=== PATIENT | male | born 1955 | race Caucasian/White ===

== ENCOUNTER 2023-04-01 18:42 | Inpatient (IN) | payer MEDICARE ==
[~2023-04-01] VITALS: Ht 180.3 cm; Wt 95.9 kg
[2023-04-01] MEDS ORDERED: diltiazem 5mg/ml 5ml inj. IV ONE ×2 (18:50→19:35)
[2023-04-01 19:03] LABS: BASOPHILS # (AUTO) 0.1 X10'3 (0-0.2); BASOPHILS % (AUTO) 0.4 % (0-1); EOSINOPHILS % (AUTO) 0 % (0-6); LYMPHOCYTES # (AUTO) 2.4 X10'3 (1.1-4.8); LYMPHOCYTES % (AUTO) 11.9 % (21-51); MEAN CORPUSCULAR HEMOGLOBIN 29.1 PG (27.0-31.0); MEAN CORPUSCULAR HGB CONC 32.6 g/dL (33.0-36.5); MEAN CORPUSCULAR VOLUME 89.3 FL (78-98); MEAN PLATELET VOLUME 7.9 FL (7.4-10.4); MONOCYTES # (AUTO) 1.9 X10'3 (0-0.9); MONOCYTES % (AUTO) 9.8 % (2-12); NEUTROPHILS # (AUTO) 15.5 X10'3 (1.8-7.7); NEUTROPHILS % (AUTO) 77.9 % (42-75); PLATELET COUNT 268 X10'3 (140-440); RED BLOOD COUNT 5.49 X10'6 (4.70-6.10); RED CELL DISTRIBUTION WIDTH 14.8 % (11.5-14.5); WHITE BLOOD COUNT 19.9 X10'3 (4.5-11.0)
[2023-04-01 19:15] LABS: ALANINE AMINOTRANSFERASE 64 U/L (12-78); ALBUMIN 3.7 G/DL (3.4-5.0); ALKALINE PHOSPHATASE 78 IU/L (46-116); ANION GAP 11 (8-16); ASPARTATE AMINO TRANSFERASE 86 U/L (10-37); BILIRUBIN,TOTAL 1.4 MG/DL (0.1-1.0); BLOOD UREA NITROGEN 23 MG/DL (7-18); BUN/CREATININE RATIO 22.1 (10.0-20.0); CALCIUM 9.2 MG/DL (8.5-10.1); CHLORIDE 100 MMOL/L (99-107); CREATININE 1.04 MG/DL (0.60-1.10); GLUCOSE 111 MG/DL (70-104); POTASSIUM 3.7 MMOL/L (3.5-5.1); SODIUM 140 MMOL/L (135-145); TOTAL CARBON DIOXIDE 28.7 MMOL/L (24-32); TOTAL PROTEIN 7.5 G/DL (6.4-8.2); eCRCL 74 ML/MIN; eGFR 71 ML/MIN
[2023-04-01 19:23] LABS: PRO BRAIN NATRIURETIC PEPTIDE 284 PG/ML (0-125)
[2023-04-01] MEDS ORDERED: diltiazem-NS 100mg/100ml 100 ML IV SCH (19:50)
[2023-04-01] MEDS ORDERED: HYDROmorphone 1 mg/ml syringe IV ONE (19:50)
[2023-04-01] MEDS ORDERED: ringers solution, lacted 1,000 ML IV ONE (19:55)
[2023-04-01] MEDS ORDERED: magnesium Cl slow-release 64mg tablet PO PRN ×2 (20:55)
[2023-04-01] MEDS ORDERED: magnesium 4gm in 100ml NS 100 ML IV PRN (20:55)
[2023-04-01] MEDS ORDERED: ondansetron/PF 4mg/2ml inj IV PRN (20:55)
[2023-04-01] MEDS ORDERED: potassium Cl 40MEQ/1/2NS 520ml 520 ML IV PRN (20:55)
[2023-04-01] MEDS ORDERED: PERFLUTREN PROTEIN-A MICROSPHR (Optison) 0.22 MG/ML 3ML VIAL IV PRN (20:55)
[2023-04-01] MEDS ORDERED: potassium Cl 20 mEq SR tablet PO PRN (20:55)
[2023-04-01] MEDS ORDERED: magnesium 2GM in 50ml NS 50 ML IV PRN (20:55)
--- NOTE | 2023-04-01 21:03 | NUR ---
RECIEVED VERBAL ORDER TO Leslee TRIPP FROM MD THOMAS
[2023-04-01] MEDS: normal saline 1000ml 1,000 ML IV SCH (21:13)
[2023-04-01] MEDS: CefTRIAXone/D5W-Rocephin 1gm 50 ML IV SCH ×2 (21:16→22:00)
[2023-04-01] MEDS: pantoprazole 40MG/NS 100ML BAG 100 ML IV SCH (21:19)
--- NOTE | 2023-04-01 21:42 | NUR ---
PATIENTS CALLED LEFT NAME /CONTACT # KANIKA
[2023-04-01] MEDS: morphine 2 MG/ML inj. syringe IV PRN (23:27)
[2023-04-01 23:45] VITALS: BP 120/68; PULSE 76; RESP 16; TEMP 99; O2SAT 92
[2023-04-01 23:50] VITALS: RESP 16; O2SAT 92
[2023-04-02] VITALS (16 sets, daily range): BP systolic 91–145; BP diastolic 58–85; PULSE 57–76; RESP 14–23; TEMP 98.2–98.6; O2SAT 91–97
[2023-04-02] MEDS ORDERED: diltiazem 5mg/ml 5ml inj. IV PRN (02:05)
--- NOTE | 2023-04-02 02:15 | NUR ---
WHILE I WAS AT LUNCH, TELE CALLED TO NOTIFY PT WENT TO AFUTTER RATE OF 150S TOTAL OF 3X 15MIN APART. DR BENTON CONTACTED AND ORDERED CARDIZEM 5MG Q2H X2 FOR HR>110. IF HR REMAINS HIGH AFTER CARDIZEM X2, TRANSFER PT TO PCU.
[2023-04-02] MEDS ORDERED: FLUT16SP BOTHNARES (02:54)
[2023-04-02] MEDS ORDERED: HYDR-3973 PO (02:54)
[2023-04-02] MEDS ORDERED: TADA5TAB2 PO (02:54)
[2023-04-02] MEDS ORDERED: SUMA25TA35 PO (02:54)
[2023-04-02] MEDS ORDERED: FLO0.4C PO (02:54)
[2023-04-02] MEDS ORDERED: FAMO40TA58 PO (02:54)
[2023-04-02] MEDS: morphine 2 MG/ML inj. syringe IV PRN (06:00)
[2023-04-02 06:11] LABS: HEMOGLOBIN 13.9 g/dl (14.0-17.9)
[2023-04-02 06:15] LABS: BASOPHILS # (AUTO) 0.1 X10'3 (0-0.2); BASOPHILS % (AUTO) 0.9 % (0-1); EOSINOPHILS # (AUTO) 0.1 X10'3 (0-0.9); EOSINOPHILS % (AUTO) 0.8 % (0-6); LYMPHOCYTES # (AUTO) 2.2 X10'3 (1.1-4.8); LYMPHOCYTES % (AUTO) 14.6 % (21-51); MEAN CORPUSCULAR HEMOGLOBIN 29.8 PG (27.0-31.0); MEAN CORPUSCULAR VOLUME 90.1 FL (78-98); MEAN PLATELET VOLUME 7.9 FL (7.4-10.4); MONOCYTES # (AUTO) 1.5 X10'3 (0-0.9); MONOCYTES % (AUTO) 9.9 % (2-12); NEUTROPHILS # (AUTO) 10.9 X10'3 (1.8-7.7); NEUTROPHILS % (AUTO) 73.8 % (42-75); PLATELET COUNT 232 X10'3 (140-440); RED BLOOD COUNT 4.66 X10'6 (4.70-6.10); RED CELL DISTRIBUTION WIDTH 14.7 % (11.5-14.5); WHITE BLOOD COUNT 14.8 X10'3 (4.5-11.0)
[2023-04-02 06:21] LABS: ALANINE AMINOTRANSFERASE 66 U/L (12-78); ALBUMIN 2.9 G/DL (3.4-5.0); ALKALINE PHOSPHATASE 69 IU/L (46-116); ANION GAP 6 (8-16); ASPARTATE AMINO TRANSFERASE 44 U/L (10-37); BILIRUBIN,TOTAL 0.7 MG/DL (0.1-1.0); BLOOD UREA NITROGEN 20 MG/DL (7-18); BUN/CREATININE RATIO 24.7 (10.0-20.0); CALCIUM 8.2 MG/DL (8.5-10.1); CHLORIDE 105 MMOL/L (99-107); CREATININE 0.81 MG/DL (0.60-1.10); GLUCOSE 95 MG/DL (70-104); MAGNESIUM 1.7 MG/DL (1.5-2.4); POTASSIUM 3.9 MMOL/L (3.5-5.1); SODIUM 136 MMOL/L (135-145); TOTAL CARBON DIOXIDE 25.1 MMOL/L (24-32); TOTAL PROTEIN 5.9 G/DL (6.4-8.2); eCRCL 96 ML/MIN; eGFR > 90 ML/MIN
--- NOTE | 2023-04-02 06:34 | NUR ---
Problems reprioritized. Patient report given, questions answered & plan of care reviewed with DINH HEMPHILL.
--- NOTE | 2023-04-02 07:08 | NUR ---
Patient in room ORTHO 4021. I have received report from Cynthia and had the opportunity to ask questions and assume patient care.
[2023-04-02] MEDS: K and/or MAG REPLACEMENT MC SCH ×2 (07:10→20:00)
[2023-04-02] MEDS: pantoprazole 40MG/NS 100ML BAG 100 ML IV SCH ×2 (07:57→20:43)
[2023-04-02] MEDS: metroNIDAZOLE-Flagyl 500mg/NS 100 ML IV SCH ×3 (07:58→16:00)
[2023-04-02] MEDS: normal saline 1000ml 1,000 ML IV SCH ×2 (07:58→20:42)
--- NOTE | 2023-04-02 08:35 | NUR ---
Message: Amado Holliday in [id number] is having severe heartburn. Can I get an order for Maalox? -Melissa [phone]
[2023-04-02] MEDS ORDERED: pneumococcal 23-VAL P-sac vacc 25 mcg/0.5ml vial IMVAC ONE (10:00)
--- NOTE | 2023-04-02 10:40 | NUR ---
PAGER ID: [phone] MESSAGE: Amado Holliday in [id number] is having a lot of pain and pain med isn't working. Pt has 1mg Morphine q4. Can we cange to Dilaudid? -Melissa [phone]
[2023-04-02] MEDS ORDERED: HYDROmorphone inj. 0.5 MG/0.5 ML DISP.SYRIN IV PRN (10:45)
[2023-04-02] MEDS: HYDROmorphone 1 mg/ml syringe IV PRN ×3 (10:57→23:59)
--- NOTE | 2023-04-02 14:20 | NUR ---
Pt to CT
[2023-04-02] MEDS ORDERED: LISI20TA28 PO (14:31)
[2023-04-02] MEDS ORDERED: morphine 4 MG/ML inj SYRINge IV PRN (16:55)
[2023-04-02] MEDS ORDERED: BUPIVAcaine/PF 2.5mg/ml (0.25%) 10ml vial ONE (16:55)
[2023-04-02] MEDS ORDERED: morphine 2 MG/ML inj. syringe IV PRN (16:55)
[2023-04-02] MEDS ORDERED: proCHLORperazine 10 MG/2 ml inj IV PRN (16:55)
[2023-04-02] MEDS ORDERED: ondansetron/PF 4mg/2ml inj IV PRN ×2 (16:55→19:10)
[2023-04-02] MEDS ORDERED: ringers solution, lacted 1,000 ML IV SCH (16:55)
[2023-04-02] MEDS ORDERED: meperidine/PF 25mg/ml syringe IV PRN ×2 (16:55)
[2023-04-02] MEDS ORDERED: sevoflurane 250ml liquid IH ONE (17:28)
[2023-04-02] MEDS ORDERED: metroNIDAZOLE 500mg/NS 100ml premix IV ONE (17:28)
[2023-04-02] MEDS ORDERED: midazolam 1 mg/ML 2ml injection ONE (17:40)
[2023-04-02] MEDS ORDERED: fentaNYL/PF 50MCG/1 ML 2ML syringe ONE (17:40)
[2023-04-02] MEDS ORDERED: ceFOXitin 1000 MG inj ONE ×2 (17:51)
[2023-04-02] MEDS ORDERED: BUPIVAcaine/PF 2.5 mg/ml (0.25%) 30ml vial IJ ONE (18:29)
--- NOTE | 2023-04-02 18:38 | NUR ---
Problems reprioritized. Patient report given, questions answered & plan of care reviewed with Keisha.
[2023-04-02] MEDS ORDERED: naloxone 0.4 mg/ml inj IV PRN (19:10)
[2023-04-02] MEDS ORDERED: propofol inj 20 ML IV ONE (19:13)
[2023-04-02] MEDS ORDERED: ondansetron/PF 4mg/2ml inj ONE (19:14)
[2023-04-02] MEDS ORDERED: neostigmine methylsulfate 1 MG/ML 10ml vial ONE (19:14)
[2023-04-02] MEDS ORDERED: dexamethasone sod phosphate 4mg/ml inj. ONE (19:14)
[2023-04-02] MEDS ORDERED: rocuronium 10mg/ml inj IV ONE ×2 (19:14)
[2023-04-02] MEDS ORDERED: glycopyrrolate 0.2mg/ml inj ONE (19:14)
--- NOTE | 2023-04-02 19:19 | NUR ---
Received from OR via HOSPITAL BED, accompanied by Anesthesiologist and report given by NIKOLAS Anesthesiologist. PATIENT A&OX4, SEVERE ABDOMEN PAIN-WILL MEDICATE, V/S WNL, SCD ON , PIV 20G LEFT AC, PIV 18G RIGHT AC, BANDAID LAPS SITES CLOSED C/D/I TO ABDOMEN WITH HOLLY DRAINING 25 CC OF SEROSANGUINEOUS. Addendum: 04/02/23 at 1938 by Edwin Morton RN Amended: Links added.
[2023-04-02] MEDS: meperidine/PF 25mg/ml syringe IV PRN ×3 (19:22→20:04)
--- NOTE | 2023-04-02 19:39 | NUR ---
Received report from debt recovery officer Tonny. Patient to follow.
--- NOTE | 2023-04-02 20:14 | NUR ---
PATIENT HAS MET ALL CRITERIA FOR TRANSFER TO ORTHO FLOOR. VSS. DRESSINGS INTACT. BED LOW, CALL LIGHT PRESENT AND 2 RAILS UP. RN PRESENT TO ACCEPT CARE OF PATIENT AND REPORT HAS BEEN CALLED. ALL QUESTIONS ANSWERED TO ACCEPTING RN. Addendum: 04/02/23 at 2019 by Edwin Morton RN Amended: Links added.
--- NOTE | 2023-04-02 20:15 | NUR ---
Patient arrived back to floor via bed from surgery. Oriented but sleepy. Post of VS initiated.
[2023-04-02] MEDS: tamsulosin 0.4mg capsule PO SCH (20:53)
[2023-04-02] MEDS: enoxaparin 40mg/0.4ml syringe SUBCUT SCH (20:54)
[2023-04-02] MEDS: CefTRIAXone/D5W-Rocephin 1gm 50 ML IV SCH (23:45)
[2023-04-03] MEDS: metroNIDAZOLE-Flagyl 500mg/NS 100 ML IV SCH ×3 (00:50→16:15)
[2023-04-03 02:00] VITALS: BP 130/77; PULSE 68; RESP 16; TEMP 97.2; O2SAT 94
[2023-04-03] MEDS: normal saline 1000ml 1,000 ML IV SCH ×2 (02:55→18:03)
[2023-04-03 06:00] VITALS: BP 121/63; PULSE 64; RESP 14; TEMP 97.6; O2SAT 93
[2023-04-03 06:08] LABS: BASOPHILS % (AUTO) 0.1 % (0-1); EOSINOPHILS % (AUTO) 0 % (0-6); HEMATOCRIT 42.7 % (42.0-52.0); HEMOGLOBIN 13.9 g/dl (14.0-17.9); LYMPHOCYTES # (AUTO) 0.9 X10'3 (1.1-4.8); LYMPHOCYTES % (AUTO) 6.9 % (21-51); MEAN CORPUSCULAR HEMOGLOBIN 29.1 PG (27.0-31.0); MEAN CORPUSCULAR HGB CONC 32.7 g/dL (33.0-36.5); MEAN CORPUSCULAR VOLUME 89.2 FL (78-98); MEAN PLATELET VOLUME 8.1 FL (7.4-10.4); MONOCYTES # (AUTO) 0.7 X10'3 (0-0.9); MONOCYTES % (AUTO) 5.2 % (2-12); NEUTROPHILS # (AUTO) 11.3 X10'3 (1.8-7.7); NEUTROPHILS % (AUTO) 87.8 % (42-75); PLATELET COUNT 218 X10'3 (140-440); RED BLOOD COUNT 4.78 X10'6 (4.70-6.10); RED CELL DISTRIBUTION WIDTH 14.4 % (11.5-14.5); WHITE BLOOD COUNT 12.8 X10'3 (4.5-11.0)
[2023-04-03 06:13] LABS: ALANINE AMINOTRANSFERASE 77 U/L (12-78); ALBUMIN 2.9 G/DL (3.4-5.0); ALBUMIN/GLOBULIN RATIO 0.9 (1.1-1.5); ALKALINE PHOSPHATASE 62 IU/L (46-116); ANION GAP 6 (8-16); ASPARTATE AMINO TRANSFERASE 54 U/L (10-37); BILIRUBIN,TOTAL 0.4 MG/DL (0.1-1.0); BLOOD UREA NITROGEN 14 MG/DL (7-18); BUN/CREATININE RATIO 19.4 (10.0-20.0); CALCIUM 8.1 MG/DL (8.5-10.1); CHLORIDE 105 MMOL/L (99-107); CREATININE 0.72 MG/DL (0.60-1.10); GLUCOSE 130 MG/DL (70-104); MAGNESIUM 1.9 MG/DL (1.5-2.4); POTASSIUM 4.1 MMOL/L (3.5-5.1); SODIUM 136 MMOL/L (135-145); TOTAL CARBON DIOXIDE 24.7 MMOL/L (24-32); TOTAL PROTEIN 6.3 G/DL (6.4-8.2); eCRCL 107 ML/MIN; eGFR > 90 ML/MIN
--- NOTE | 2023-04-03 07:00 | NUR ---
Problems reprioritized. Patient report given, questions answered & plan of care reviewed with Melissa TAO.
--- NOTE | 2023-04-03 07:04 | NUR ---
Patient in room [facility]TH[facility] 4021. I have received report from Keisha and had the opportunity to ask questions and assume patient care.
[2023-04-03] MEDS: K and/or MAG REPLACEMENT MC SCH ×2 (07:31→20:00)
[2023-04-03] MEDS: nicotine 21mg patch - 24 hr TD SCH (08:00)
[2023-04-03] MEDS: lisinopril 20mg tablet PO SCH (08:07)
[2023-04-03] MEDS: famotidine 20mg tablet PO SCH (08:07)
[2023-04-03] MEDS: pantoprazole 40MG/NS 100ML BAG 100 ML IV SCH ×2 (08:09→20:17)
[2023-04-03] MEDS: tamsulosin 0.4mg capsule PO SCH ×2 (09:22→20:12)
[2023-04-03] MEDS: HYDROmorphone 1 mg/ml syringe IV PRN ×4 (09:22→22:02)
[2023-04-03 10:00] VITALS: BP 141/71; PULSE 56; RESP 18; TEMP 98.3; O2SAT 91
--- NOTE | 2023-04-03 12:39 | NUR ---
0800 dose of Flagyl missed due to being out of stock in both [facility] on the floor. Pharmacy messaged and called multiple times, however, once antibiotic arrived it was too late to hang until next dose is due.
[2023-04-03] MEDS: metoclopramide 5 mg/ml inj IV SCH ×2 (14:05→20:16)
[2023-04-03 18:00] VITALS: BP 115/58; PULSE 69; RESP 16; TEMP 97.9; O2SAT 92
--- NOTE | 2023-04-03 18:58 | NUR ---
Problems reprioritized. Patient report given, questions answered & plan of care reviewed with Sujatha.
--- NOTE | 2023-04-03 19:07 | NUR ---
Patient in room [facility]TH[facility] 4021. I have received report from Mary TAO and had the opportunity to ask questions and assume patient care.
[2023-04-03 20:00] VITALS: RESP 16; O2SAT 92
--- NOTE | 2023-04-03 20:00 | NUR ---
Patient states that he has pain but doesn't want to take PO pain pills. Patient states that he wants to have IV pain meds when available. Addendum: 04/03/23 at 2148 by Sujatha Funes LVN, LVN Amended: Links added.
[2023-04-03] MEDS: enoxaparin 40mg/0.4ml syringe SUBCUT SCH (20:12)
[2023-04-03 22:00] VITALS: BP 129/80; PULSE 69; RESP 20; TEMP 98.6; O2SAT 93
[2023-04-03] MEDS: CefTRIAXone/D5W-Rocephin 1gm 50 ML IV SCH (22:02)
[2023-04-04] VITALS (7 sets, daily range): BP systolic 128–148; BP diastolic 66–85; PULSE 60–71; RESP 14–16; TEMP 97.8–98.2; O2SAT 92–97
[2023-04-04] MEDS: metroNIDAZOLE-Flagyl 500mg/NS 100 ML IV SCH ×3 (00:26→15:52)
[2023-04-04] MEDS: normal saline 1000ml 1,000 ML IV SCH ×3 (00:32→20:50)
[2023-04-04] MEDS: metoclopramide 5 mg/ml inj IV SCH ×4 (02:18→20:31)
--- NOTE | 2023-04-04 03:02 | NUR ---
during my shift. Patient denies having any flatus or BM. Educated patient on getting up out of bed and walking. This will help his bowels to start working. patient did walk the unit several times for my shift.
--- NOTE | 2023-04-04 03:30 | NUR ---
I agree with HOSPITALIST NOCTURNIST PHYSICIAN physical assessment
[2023-04-04] MEDS: HYDROmorphone 1 mg/ml syringe IV PRN (03:42)
--- NOTE | 2023-04-04 03:53 | NUR ---
Problems reprioritized. Patient report given, questions answered & plan of care reviewed with Christi TAO.
--- NOTE | 2023-04-04 03:57 | NUR ---
Patient in room [facility]TH[facility] 4021. I have received report from Sujatha and had the opportunity to ask questions and assume patient care.
[2023-04-04] MEDS: K and/or MAG REPLACEMENT MC SCH ×2 (07:23→20:00)
[2023-04-04] MEDS: nicotine 21mg patch - 24 hr TD SCH (07:24)
[2023-04-04] MEDS: pantoprazole 40MG/NS 100ML BAG 100 ML IV SCH ×2 (07:28→20:30)
[2023-04-04] MEDS: famotidine 20mg tablet PO SCH (07:35)
[2023-04-04] MEDS: tamsulosin 0.4mg capsule PO SCH ×2 (07:35→20:32)
[2023-04-04] MEDS: lisinopril 20mg tablet PO SCH (07:37)
[2023-04-04] MEDS: HYDROcodone/acetaminophen 10/325mg tab PO PRN ×4 (07:57→20:32)
[2023-04-04 08:45] LABS: BASOPHILS % (AUTO) 0.4 % (0-1); EOSINOPHILS # (AUTO) 0.1 X10'3 (0-0.9); EOSINOPHILS % (AUTO) 0.6 % (0-6); HEMATOCRIT 40.7 % (42.0-52.0); HEMOGLOBIN 13.6 g/dl (14.0-17.9); LYMPHOCYTES # (AUTO) 2.1 X10'3 (1.1-4.8); LYMPHOCYTES % (AUTO) 21.8 % (21-51); MEAN CORPUSCULAR HEMOGLOBIN 29.8 PG (27.0-31.0); MEAN CORPUSCULAR HGB CONC 33.4 g/dL (33.0-36.5); MEAN CORPUSCULAR VOLUME 89.2 FL (78-98); MEAN PLATELET VOLUME 7.6 FL (7.4-10.4); MONOCYTES % (AUTO) 10.2 % (2-12); NEUTROPHILS # (AUTO) 6.6 X10'3 (1.8-7.7); PLATELET COUNT 239 X10'3 (140-440); RED BLOOD COUNT 4.56 X10'6 (4.70-6.10); RED CELL DISTRIBUTION WIDTH 14.3 % (11.5-14.5); WHITE BLOOD COUNT 9.8 X10'3 (4.5-11.0)
[2023-04-04 09:07] LABS: ALANINE AMINOTRANSFERASE 53 U/L (12-78); ALBUMIN 2.9 G/DL (3.4-5.0); ALKALINE PHOSPHATASE 56 IU/L (46-116); ANION GAP 6 (8-16); ASPARTATE AMINO TRANSFERASE 24 U/L (10-37); BILIRUBIN,TOTAL 0.5 MG/DL (0.1-1.0); BLOOD UREA NITROGEN 11 MG/DL (7-18); BUN/CREATININE RATIO 12.6 (10.0-20.0); CALCIUM 8.1 MG/DL (8.5-10.1); CHLORIDE 104 MMOL/L (99-107); CREATININE 0.87 MG/DL (0.60-1.10); GLUCOSE 101 MG/DL (70-104); MAGNESIUM 1.9 MG/DL (1.5-2.4); POTASSIUM 3.4 MMOL/L (3.5-5.1); SODIUM 137 MMOL/L (135-145); TOTAL PROTEIN 5.9 G/DL (6.4-8.2); eCRCL 89 ML/MIN; eGFR 88 ML/MIN
[2023-04-04] MEDS: potassium Cl 20 mEq SR tablet PO PRN ×3 (11:38→20:34)
--- NOTE | 2023-04-04 18:23 | NUR ---
Problems reprioritized. Patient report given, questions answered & plan of care reviewed with Kristie.
[2023-04-04] MEDS: enoxaparin 40mg/0.4ml syringe SUBCUT SCH (20:31)
[2023-04-05] MEDS: metoclopramide 5 mg/ml inj IV SCH ×2 (01:57→08:06)
[2023-04-05 04:37] LABS: BASOPHILS # (AUTO) 0.1 X10'3 (0-0.2); BASOPHILS % (AUTO) 1.1 % (0-1); EOSINOPHILS # (AUTO) 0.1 X10'3 (0-0.9); EOSINOPHILS % (AUTO) 1.2 % (0-6); HEMATOCRIT 41.3 % (42.0-52.0); HEMOGLOBIN 13.7 g/dl (14.0-17.9); LYMPHOCYTES # (AUTO) 2.2 X10'3 (1.1-4.8); LYMPHOCYTES % (AUTO) 22.6 % (21-51); MEAN CORPUSCULAR HEMOGLOBIN 29.4 PG (27.0-31.0); MEAN CORPUSCULAR HGB CONC 33.1 g/dL (33.0-36.5); MEAN CORPUSCULAR VOLUME 88.8 FL (78-98); MEAN PLATELET VOLUME 8.4 FL (7.4-10.4); MONOCYTES # (AUTO) 1.1 X10'3 (0-0.9); MONOCYTES % (AUTO) 11.1 % (2-12); NEUTROPHILS # (AUTO) 6.2 X10'3 (1.8-7.7); PLATELET COUNT 260 X10'3 (140-440); RED BLOOD COUNT 4.65 X10'6 (4.70-6.10); RED CELL DISTRIBUTION WIDTH 14.2 % (11.5-14.5); WHITE BLOOD COUNT 9.7 X10'3 (4.5-11.0)
[2023-04-05] MEDS: normal saline 1000ml 1,000 ML IV SCH (04:55)
[2023-04-05 05:06] LABS: ALANINE AMINOTRANSFERASE 40 U/L (12-78); ALBUMIN 2.8 G/DL (3.4-5.0); ALBUMIN/GLOBULIN RATIO 0.9 (1.1-1.5); ALKALINE PHOSPHATASE 49 IU/L (46-116); ANION GAP 8 (8-16); ASPARTATE AMINO TRANSFERASE 19 U/L (10-37); BILIRUBIN,TOTAL 0.6 MG/DL (0.1-1.0); BLOOD UREA NITROGEN 10 MG/DL (7-18); BUN/CREATININE RATIO 15.6 (10.0-20.0); CALCIUM 8.2 MG/DL (8.5-10.1); CHLORIDE 106 MMOL/L (99-107); CREATININE 0.64 MG/DL (0.60-1.10); GLUCOSE 95 MG/DL (70-104); POTASSIUM 3.9 MMOL/L (3.5-5.1); SODIUM 138 MMOL/L (135-145); TOTAL PROTEIN 5.9 G/DL (6.4-8.2); eCRCL 121 ML/MIN; eGFR > 90 ML/MIN
--- NOTE | 2023-04-05 06:47 | NUR ---
Patient in room [facility]TH[facility] 4021. I have received report from HARDEEP TAO and had the opportunity to ask questions and assume patient care.
[2023-04-05 08:00] VITALS: BP 152/74; PULSE 69; RESP 16; TEMP 97.5; O2SAT 95
[2023-04-05] MEDS: nicotine 21mg patch - 24 hr TD SCH (08:00)
[2023-04-05] MEDS: K and/or MAG REPLACEMENT MC SCH (08:00)
[2023-04-05 08:07] VITALS: BP_SYST 152; PULSE 69
[2023-04-05] MEDS: tamsulosin 0.4mg capsule PO SCH (08:07)
[2023-04-05] MEDS: lisinopril 20mg tablet PO SCH (08:07)
[2023-04-05] MEDS: famotidine 20mg tablet PO SCH (08:08)
[2023-04-05] MEDS: pantoprazole 40MG/NS 100ML BAG 100 ML IV SCH (08:09)
[2023-04-05] MEDS: HYDROcodone/acetaminophen 10/325mg tab PO PRN (08:20)
[2023-04-05] MEDS ORDERED: NICO-687 TD (10:14)
[2023-04-05 11:35] VITALS: RESP 16; O2SAT 95
--- NOTE | 2023-04-05 12:18 | NUR ---
pt. alert and stable upon discharge. pt. iv canula whole and intact upon removal. pt. left safely ad yoel with spouse and aid into private vehicle. pt. educated on new prescriptions, wound care, warning s/s of infection, and to follow up with primary care provider in 1 week. pt. left with all belongings. .
== END 2023-04-05 12:15 | disposition home or self-care (01) | DRG 854 ==
LOC: ER 18:44 → ED HOLD 21:02 → EDBEDREQ 22:32 → ORTHO 4S 23:05
PROVIDERS: ADMIT Internal Medicine; ATTEND Family Medicine
PROC: 8E0W4CZ Robotic Assisted Procedure of Trunk Region, Percutaneous Endoscopic Approach (ICD-10-PCS; 2023-04-02)
PROC: 0FT44ZZ Resection of Gallbladder, Percutaneous Endoscopic Approach (ICD-10-PCS; principal; 2023-04-02 17:28)
DX: A41.9 Sepsis, unspecified organism (principal); K80.00 Calculus of gallbladder with acute cholecystitis without obstruction; F17.210 Nicotine dependence, cigarettes, uncomplicated; E86.0 Dehydration; I48.91 Unspecified atrial fibrillation; I10 Essential (primary) hypertension; N40.0 Benign prostatic hyperplasia without lower urinary tract symptoms; Z71.6 Tobacco abuse counseling
CPT/HCPCS: 36415; 71045; 74176; 80053; 83735; 83880; 84484; 85025; 87081; 93005; 93306; 96374; 96375; 96376; 99291; A4215; A4615; A4618; A7000; C9113; G0378; J0694; J0696; J1100; J1170; J1650; J2175; J2250; J2270; J2405; J2704; J2710; J2765; J3010; J3490; J7030; J7120